=== PATIENT | male | born 1980 | race Caucasian/White ===

== ENCOUNTER 2024-04-03 09:14 | Emergency (ER) | payer SELFPAY ==
[2024-04-03] MEDS: Lidocaine 1% 10 ML MDV INJECT ONE (10:43)
== END 2024-04-03 11:00 | disposition home or self-care (01) ==
LOC: JD.ED 09:14
DX: S61.512A Laceration without foreign body of left wrist, initial encounter (principal); W26.8XXA Contact with other sharp object(s), not elsewhere classified, initial encounter
CPT/HCPCS: 12002; 99282; 99283; J3490